=== PATIENT | female | born 1950 | race Caucasian/White ===

== ENCOUNTER 2018-01-26 11:46 | Outpatient (REF) | payer MEDICARE, MEDICAID, SELFPAY ==
[2018-01-26 21:54] LABS: Anion Gap 6.6 mmol/L (3-11); BUN 10 mg/dL (7-18); CO2 31.4 mmol/L (21.0-32.0); CREATININE 0.77 mg/dL (0.55-1.02); Calcium 9.3 mg/dL (8.5-10.1); Chloride 100 mmol/L (98-107); Glucose 82 mg/dL (70-100); Magnesium 2.2 mg/dL (1.8-2.4); Potassium 4.1 mmol/L (3.5-5.1); Sodium 138 mmol/L (136-145)
== END 2018-01-26 12:06 ==
LOC: NCHCN 11:46
PROVIDERS: PCP Family Medicine; Visit Provider Family Medicine
DX: I10 Essential (primary) hypertension (principal); M79.1 Myalgia
CPT/HCPCS: 80048; 83735

== ENCOUNTER 2018-05-03 01:07 | Outpatient (CLI) | payer MEDICARE, MEDICAID, SELFPAY ==
--- NOTE | 2018-05-03 09:29 | DI.RAD_ITS ---
SYMPTOM/DIAGNOSIS: CHRONIC BACK PAIN, M54.89 THORACIC SPINE: AP and lateral views were obtained. There is a mild right convex scoliosis of the thoracic spine. Moderate degenerative changes are seen throughout the thoracic spine. No acute fractures or subluxations are seen. The bones appear normally mineralized. There is a large hiatal hernia present. IMPRESSION: Moderate degenerative changes in the thoracic spine. 2. Large hiatal hernia
== END 2018-05-03 01:27 ==
PROVIDERS: PCP Family Medicine; Visit Provider Family Medicine
DX: M54.6 Pain in thoracic spine (principal); G89.29 Other chronic pain; M47.814 Spondylosis without myelopathy or radiculopathy, thoracic region
CPT/HCPCS: 72072

== ENCOUNTER 2018-10-12 10:52 | Outpatient (REF) | payer MEDICARE, MEDICAID, SELFPAY ==
[2018-10-12 19:56] LABS: BUN 16 mg/dL (7-18); CREATININE 0.87 mg/dL (0.55-1.02)
== END 2018-10-12 11:12 ==
LOC: NCHCN 10:52
PROVIDERS: PCP Family Medicine; Visit Provider Family Medicine
DX: Z01.812 Encounter for preprocedural laboratory examination (principal)
CPT/HCPCS: 84520; 82565

== ENCOUNTER 2018-12-03 11:20 | Outpatient (CLI) | payer MEDICARE, MEDICAID, SELFPAY ==
--- NOTE | 2018-12-18 13:45 | HOLTER_ITS ---
DATE OF DICTATION: December 18, 2018 STUDY INDICATION: Chest discomfort. REQUESTING PROVIDER: Not available. FINDINGS: The patient was monitored for 1 day and 23 hours. Baseline sinus rhythm. Average heart rate 75 bpm, range 52 to 121 bpm. Rare ectopy. 17 atrial runs, longest 5 beats, fastest 179 bpm. No pauses greater than 3 seconds. No high degree heart block. Two patient events. None of these correlated with arrhythmias. FINAL INTERPRETATION: Minor asymptomatic atrial tachyarrhythmias..
== END 2018-12-03 11:40 ==
PROVIDERS: PCP Family Medicine; Visit Provider Family Medicine
DX: R07.89 Other chest pain (principal); I47.2 Ventricular tachycardia; I47.1 Supraventricular tachycardia
CPT/HCPCS: 93225

== ENCOUNTER 2018-12-05 14:07 | Outpatient (CLI) | payer MEDICARE, MEDICAID, SELFPAY ==
--- NOTE | 2018-12-14 07:20 | HOLTER_ITS ---
HOLTER MONITOR DATE OF DICTATION December 13, 2018 INDICATION Chest discomfort. 48 hour Holter Monitor Baseline rhythm is sinus rhythm. Average heart rate is 75 beats per minute. Minimum heart rate is 52 beats per minute and max heart rate is 121 beats per minute. Rare isolated ventricular ectopy. One short burst of nonsustained VT lasting 5 beats. Rare predominantly isolated PACs. No atrial fibrillation. Three short bursts of SVT, the longest 5 beats long. No significant pauses or rafael arrhythmias. One diary event of deep achy pain corresponds to sinus rhythm. Kailey Regalado M.D. GERMAIN/ynes T - 12/14/2018
--- NOTE | 2018-12-17 14:18 | HOLTER_ITS ---
DATE OF DICTATION: December 17, 2018 48-HOUR STUDY Baseline rhythm sinus. Occasional single PAC. SVT x2, longest 5-beat duration, fastest 179 bpm. No atrial fibrillation. Rare single PVC. One couplet. No VT. No bradycardia. SYMPTOMS: Deep ache noted once during sinus rhythm 86 bpm, no ST-T wave changes. Average heart rate 75 bpm, range 52-121 bpm.
--- NOTE | 2018-12-28 15:51 | HOLTER_ITS ---
DATE OF DICTATION: December 28, 2018 48-HOUR HOLTER MONITOR INDICATION: Chest discomfort. Baseline sinus rhythm. Average heart rate 75 bpm, minimum heart rate 52 bpm, maximum heart rate 121 bpm. Rare isolated ventricular ectopy. One short 5-beat burst of non-sustained VT. Rare isolated atrial ectopy. No atrial fibrillation. No significant pauses or bradyarrhythmias. One diary entry of deep, achy pain corresponds to sinus rhythm.
== END 2018-12-05 14:27 ==
PROVIDERS: PCP Family Medicine; Visit Provider Family Medicine
DX: R07.89 Other chest pain (principal); I47.2 Ventricular tachycardia; I47.1 Supraventricular tachycardia
CPT/HCPCS: 93226

== ENCOUNTER 2018-12-13 12:35 | Outpatient (CLI) | payer MEDICARE, MEDICAID, SELFPAY | END 2018-12-13 12:55 | PROVIDERS: PCP Family Medicine; Referring Provider Family Medicine; Visit Provider Internal Medicine Cardiovascular Disease | DX: R07.89 Other chest pain (principal); I47.2 Ventricular tachycardia; I47.1 Supraventricular tachycardia | CPT/HCPCS: 93227 ==

== ENCOUNTER → 2019-01-30 13:02 | Outpatient (BNVA) | payer MEDICARE, MEDICAID, SELFPAY | PROVIDERS: PCP Family Medicine; Visit Provider Psychiatry & Neurology Neurology | DX: M79.602 Pain in left arm (principal); R47.1 Dysarthria and anarthria; R25.1 Tremor, unspecified; I10 Essential (primary) hypertension | CPT/HCPCS: 99205 ==

== ENCOUNTER 2019-05-27 15:55 | Outpatient (CLI) | payer MEDICARE, MEDICAID, SELFPAY ==
--- NOTE | 2019-05-27 15:29 | DI.RAD_ITS ---
EXAM: XR KNEE RT 3V AP,LAT,HOA INDICATION: RT KNEE PAIN,M25.561,INFEROLATERAL SWELLING,PAIN POSTERIORLY, ? BAKERS CYST. COMPARISON: No exams were available for comparison TECHNIQUE: 2D digital imaging was performed. FINDINGS: The joint spaces are well maintained. There is mild spurring at the articular aspect of the patella and quadriceps insertion on the patella. No joint effusion is visible. There is a calcification se en adjacent to the lateral femoral condyle.
== END 2019-05-27 16:15 ==
PROVIDERS: PCP Family Medicine; Visit Provider Nurse Practitioner Family
DX: M25.561 Pain in right knee (principal); M79.89 Other specified soft tissue disorders; M25.761 Osteophyte, right knee
CPT/HCPCS: 73562

== ENCOUNTER → 2019-06-21 10:16 | Outpatient (BNVA) | payer MEDICARE, MEDICAID, SELFPAY | PROVIDERS: PCP Family Medicine; Referring Provider Family Medicine; Visit Provider Student in an Organized Health Care Education/Training Program | DX: M23.41 Loose body in knee, right knee (principal) | CPT/HCPCS: 99203; 99214 ==

== ENCOUNTER 2019-06-28 02:02 | Outpatient (CLI) | payer MEDICARE, MEDICAID, SELFPAY ==
--- NOTE | 2019-06-28 08:52 | DI.MRI_ITS ---
EXAM: MR LOWER JOINT RT WO CLINICAL HISTORY: R knee pain M23.41 LOOSE BODY IN RT KNEE. TECHNIQUE: Multiplanar multisequence MRI was performed. COMPARISON: XR KNEE RT 3V AP,LAT,HOA from 05/27/2019 FINDINGS: MR examination of the knee was performed according to the usual protocol. There is a small knee join t effusion and small Zacarias's cyst is noted. There is mild articular cartilage thinning at the patell ofemoral joint consistent with degenerative change. Otherwise extensor mechanism appears intact. No loose joint body seen. No significant bony signal abnormality is seen. There is thinning of the articular cartilage of the medial tibiofemoral joint. There is mildly increased signal in the Hoffa fat pad, nonspecific. There is abnormal signal in anterior horn of lateral meniscus without evidence of a discrete tear. No medial meniscal tear. No cruciate ligament tear. Collateral ligaments appear intact. IMPRESSION: Mild degenerative articular changes of patellofemoral joint and medial tibiofemoral joint. No international trade analyst al derangement. No loose body is seen.
== END 2019-06-28 02:22 ==
PROVIDERS: PCP Family Medicine; Visit Provider Physician Assistant
DX: M25.561 Pain in right knee (principal); M23.41 Loose body in knee, right knee; M17.11 Unilateral primary osteoarthritis, right knee; M25.461 Effusion, right knee; M71.21 Synovial cyst of popliteal space [Baker], right knee
CPT/HCPCS: 73721

== ENCOUNTER → 2019-07-01 13:51 | Outpatient (BNVA) | payer MEDICARE, MEDICAID, SELFPAY | PROVIDERS: PCP Family Medicine; Referring Provider Family Medicine; Visit Provider Student in an Organized Health Care Education/Training Program | DX: M65.262 Calcific tendinitis, left lower leg (principal); M65.261 Calcific tendinitis, right lower leg | CPT/HCPCS: 20610; 99213; J1040 ==

== ENCOUNTER 2019-12-20 14:32 | Outpatient (REF) | payer MEDICARE, MEDICAID, SELFPAY ==
[2019-12-20 20:01] LABS: BUN 16 mg/dL (7-18); C-Reactive Protein 0.19 mg/dL (0.0-0.3); CREATININE 0.88 mg/dL (0.55-1.02); Calcium 9.5 mg/dL (8.5-10.1); Chloride 99 mmol/L (98-107); Glucose 88 mg/dL (74-106); Potassium 3.8 mmol/L (3.5-5.1); Sodium 138 mmol/L (136-145); TSH (W/Ref FT4) 0.12 uIU/mL (0.36-3.74)
[2019-12-20 20:03] LABS: HCT 40.1 % (36.0-46.0); HGB 12.8 g/dL (11.2-15.7)
[2019-12-20 21:32] LABS: ESR 14 mm/hr (0-30)
[2019-12-20 21:38] LABS: FREE T4 1.14 ng/dL (0.76-1.46)
== END 2019-12-20 14:52 ==
LOC: NCHCN 14:32
PROVIDERS: PCP Family Medicine; Visit Provider Family Medicine
DX: I10 Essential (primary) hypertension (principal); R63.5 Abnormal weight gain; G56.01 Carpal tunnel syndrome, right upper limb; G89.4 Chronic pain syndrome
CPT/HCPCS: 80048; 85652; 84439; 84443; 85014; 85018; 86140

== ENCOUNTER 2020-12-01 14:42 | Outpatient (REF) | payer MEDICARE, MEDICAID, SELFPAY ==
[2020-12-01 19:58] LABS: Anion Gap 8.8 mmol/L (3-11); BUN 18 mg/dL (7-18); CO2 29.2 mmol/L (21.0-32.0); Calcium 9.5 mg/dL (8.5-10.1); Chloride 103 mmol/L (98-107); Estimated GFR 54.97 (mL/min/1.73m2); Glucose 86 mg/dL (74-106); Potassium 3.6 mmol/L (3.5-5.1); Sodium 141 mmol/L (136-145); TSH (W/Ref FT4) 0.19 uIU/mL (0.36-3.74)
[2020-12-01 20:28] LABS: FREE T4 1.06 ng/dL (0.76-1.46)
== END 2020-12-01 14:43 | disposition home or self-care (01) ==
LOC: NCHCN 14:42
PROVIDERS: PCP Family Medicine; Visit Provider Family Medicine
DX: Z00.00 Encounter for general adult medical examination without abnormal findings (principal); E04.1 Nontoxic single thyroid nodule; I10 Essential (primary) hypertension
CPT/HCPCS: 80048; 84439; 84443

== ENCOUNTER 2020-12-24 02:17 | Outpatient (CLI) | payer MEDICARE, MEDICAID, SELFPAY ==
--- NOTE | 2020-12-24 | DI.US_ITS ---
Exam(s) US THYROID EXAM: US THYROID CLINICAL HISTORY: THYROID NODULE,E04.1,[facility],Z00.00. TECHNIQUE: Ultrasound thyroid performed using standard protocol. COMPARISON: Prior ultrasound December 2011 was reviewed FINDINGS: Compared to the 2012 study there is again noted a normal size left thyroid lobe and an enlarged -expa nded right lobe. There are no nodules in the left lobe nor in the isthmus. RIGHT THYROID LOBE: Measures 2.4 cm AP x 3.6 cm wide x 4.9 cm craniocaudal LEFT THYROID LOBE: Measures 1.4 cm AP x 1.4 wide x 3.5 cm craniocaudal ISTHMUS: Normal thickness. There are no nodules in the isthmus. Significant nodules are as follows: In the right lobe there are 2 contiguous somewhat similar appearing partially solid partially cystic nodules, with the larger of these 2 nodules again noted be the more superior of the 2 nodules. RIGHT THYROID LOBE: . Nodule #1. This is the more superior/larger nodule: Size: 3.4 cm x 3.6 cm x 4.2 cm Composition: Mixed igoux-mvchgs-4 point Echogenicity: Hypoechoic-2 points Shape: Not taller than wider-0 point Margin: Smooth- 0 points Echogenic Foci: Contains somewhat psammomatous calcifications-2 points Total Points for this nodule: 5 ACR Ti-Rads Category: TR4-moderately suspicious Given that this nodule measures greater than 1.5 cm ultrasound-guided FNA is recommended. I note catrachito t this nodule has only slightly increased in size from 2012. Nodule #2. This is the lower of the 2 nodules Size: 1.6 cm x 1.8 cm x 2.2 cm Composition: Mixed cystic-solid- 1 point Echogenicity: Hypoechoic- 2 points Shape: Wider than taller- 0 points Margin: Smooth-0 points Echogenic Foci: None-0 points Total points for this nodule: 3 ACR Ti-Rads Category: TR3 As this nodule is less than 2.5 cm it can be followed. It exhibits minimal change from 2012. There are no additional right lobe nodules. No nodules seen in the isthmus nor in the left lobe. LYMPH NODES: There is no significant adenopathy. IMPRESSION: 1. Compared to the images of December 2011 the 2 adjacent mixed solid-cystic nodules occupying most of the right thyroid lobe are again noted. The more superior of the 2 nodules which is the larger nodul e has minimally increased in size by few millimeters and is a TiRads 4 nodule. Given that it measure s greater than 1.5 cm it should undergo ultrasound-guided FNA. Correlation with any history of inter arabella biopsy is recommended. 2. The more inferior-smaller nodule in the right lobe exhibits minimal if any significant change from 2012 and is therefore deemed stable and can be followed. 3. There is no significant lymphadenopathy. DATA REPOSITORY:
== END 2020-12-24 02:37 ==
PROVIDERS: PCP Family Medicine; Visit Provider Family Medicine
DX: Z00.00 Encounter for general adult medical examination without abnormal findings (principal); E04.2 Nontoxic multinodular goiter
CPT/HCPCS: 76536

== ENCOUNTER 2021-03-15 07:45 | Outpatient (CLI) | payer MEDICARE, MEDICAID, SELFPAY ==
--- NOTE | 2021-03-15 13:24 | DI.MAMMO_ITS ---
Exam(s) MAMMO SCREENING EXAM: MAMMO SCREENING CLINICAL HISTORY: SCREENING, [facility],Z00.00. TECHNIQUE: Bilateral full field digital CC and MLO mammographic images were obtained with 3D tomosyn thesis and utilizing computer aided detection (CAD). COMPARISON: Prior mammograms dating back to 2012, the most recent being November 2016. FINDINGS: There is stable appearing nodules in the right breast, unchanged from prior studies. Also stable ana earing nodules in left breast. There are no new spiculated masses nor malignant appearing microcalcification groups. There is no significant architectural distortion nor skin thickening-retraction. IMPRESSION: Stable benign findings. No radiographic evidence of malignancy. BI-RADS Category 2 - Benign Findings Breast Density - Category B - Scattered areas of fibroglandular density Breast density Category C or D implies that the patient has dense breast tissue. Dense breast tissue can make it harder to find cancer on a mammogram. Dense breast tissue is also associated with an incr eased risk of breast cancer. This information about the result of the mammogram report was provided to the patient to raise their awareness. Use this report when you speak with the patient about their risks for breast cancer, which includes their family history. At that time, you may recommend additional screening tests (Ultrasoun d or MRI) as these tests may add significant information. A negative radiographic report should not delay biopsy if a dominant or clinically suspicious mass is present. Up to ten percent of cancers are not identified on mammography. A negative report may reinforce clinical impression. Adenosis and dense breasts may obscure an underlying neoplasm. False positive reports average 6 to 10%. Patient will receive a letter notifying them of these results.
== END 2021-03-15 08:05 ==
PROVIDERS: PCP Family Medicine; Visit Provider Family Medicine
DX: Z12.31 Encounter for screening mammogram for malignant neoplasm of breast (principal)
CPT/HCPCS: 77063; 77067

== ENCOUNTER 2021-06-03 03:05 | Outpatient (CLI) | payer MEDICARE, MEDICAID, SELFPAY ==
--- NOTE | 2021-06-03 13:30 | DI.DEXA_ITS ---
Exam(s) XR DEXA BONE DENSITY W/WO TRENT EXAM: XR DEXA BONE DENSITY W/WO TRENT CLINICAL HISTORY: MENOPAUSAL, Z78.0, [facility], Z00.00,screening osteoporosis TECHNIQUE: [employer] Horizon C densitometer COMPARISON: DEXA 2003 and 2012 FINDINGS: Lateral view of the thoracic and lumbar spine shows no evidence of compression fractures. Bone mineral density measurements of the lumbar spine correspond to a total T-score of -1.6, in the osteopenic range. 7.8 percent decrease compared with 2012. 22.5 percent decrease compared to 2003. Bone mineral density measurements of the left hip correspond to a total T-score of -0.6. The femora l neck T-score is -0.8, in the normal range. this represents 11.3 percent decrease from 2012 and a 17.9 percent decrease from 2003. . The right forearm bone mineral density measurements correspond to a T-score of the distal 3rd of -1. 7, in the osteopenic range. There has been a 14.2 percent decrease compared with 2012. The forearm was not evaluated in 2003.. IMPRESSION: Normal bone mineral density of the left hip. Osteopenia of the lumbar spine and left forearm. There is been significant decrease in bone mineral density when compared with prior exams..
== END 2021-06-03 03:25 ==
PROVIDERS: PCP Family Medicine; Visit Provider Family Medicine
DX: Z78.0 Asymptomatic menopausal state (principal); Z00.00 Encounter for general adult medical examination without abnormal findings; M85.832 Other specified disorders of bone density and structure, left forearm; M85.88 Other specified disorders of bone density and structure, other site
CPT/HCPCS: 77080

== ENCOUNTER 2022-01-11 15:14 | Outpatient (REF) | payer MEDICARE, MEDICAID, SELFPAY ==
[2022-01-11 17:24] LABS: Anion Gap 9.6 mmol/L (3-11); BUN 15 mg/dL (7-18); CO2 28.4 mmol/L (21.0-32.0); CREATININE 0.8 mg/dL (0.55-1.02); Calcium 9.1 mg/dL (8.5-10.1); Chloride 99 mmol/L (98-107); Glucose 95 mg/dL (74-106); Potassium 3.9 mmol/L (3.5-5.1); Sodium 137 mmol/L (136-145); TSH (W/Ref FT4) 0.04 uIU/mL (0.36-3.74)
[2022-01-11 17:50] LABS: FREE T4 1.18 ng/dL (0.76-1.46)
[2022-01-14 18:45] LABS: T3,Free 3.9 pg/mL (2.8-5.3)
== END 2022-01-11 15:15 | disposition home or self-care (01) ==
LOC: NCHCN 15:14
PROVIDERS: PCP Family Medicine; Visit Provider Family Medicine
DX: E04.1 Nontoxic single thyroid nodule (principal); I10 Essential (primary) hypertension; M79.7 Fibromyalgia
CPT/HCPCS: 80048; 84439; 84443; 84481

== ENCOUNTER 2023-04-10 17:44 | Outpatient (REF) | payer MEDICARE, MEDICAID, SELFPAY ==
[2023-04-10 18:56] LABS: ALT 33 U/L (14-59); AST 25 U/L (15-37); Albumin 3.9 g/dL (3.4-5.0); Alkaline Phosphatase 68 U/L (46-116); Anion Gap 9.3 mmol/L (3-11); BUN 17 mg/dL (7-18); Bilirubin, Total 0.3 mg/dL (0.2-1.0); CO2 28.7 mmol/L (21.0-32.0); Calcium 9.6 mg/dL (8.5-10.1); Calculated LDL 106 mg/dL (<100); Chloride 101 mmol/L (98-107); Cholesterol 199 mg/dL (<200); Estimated GFR 60.23 (mL/min/1.73m2); Glucose 96 mg/dL (74-106); HDL Cholesterol 69 mg/dL (40-60); Potassium 3.5 mmol/L (3.5-5.1); Sodium 139 mmol/L (136-145); Total Protein 7.8 g/dL (6.4-8.2); Triglyceride 122 mg/dL (<150)
== END 2023-04-10 17:45 | disposition home or self-care (01) ==
LOC: NCHCN 17:44
PROVIDERS: PCP Family Medicine; Visit Provider Family Medicine
DX: I10 Essential (primary) hypertension (principal)
CPT/HCPCS: 80053; 80061

== ENCOUNTER → 2023-05-05 00:23 | Outpatient (CLI) | payer MEDICARE, MEDICAID, SELFPAY ==
--- NOTE | 2023-05-05 12:45 | DI.MAMMO_ITS ---
Exam(s) MAMMO SCREENING EXAM: MAMMO SCREENING CLINICAL HISTORY: SCREENING, Z12.31, Z00.00 ADULT HEALTH EXAMINATION TECHNIQUE: Mammograms were interpreted according to the usual protocol including computer analysis w [employer] CAD system, tomosynthesis and C-view imaging. COMPARISON: 2014 through 2021 FINDINGS: The breasts are composed of scattered fibroglandular densities, Breast Density category B. No suspicious masses or suspicious microcalcifications are seen. No skin thickening or abnormal axillary lymph nodes are seen. There has been no significant change from prior exams. IMPRESSION: BI-RADS Category 1, Negative mammogram Yearly screening mammography is recommended. Breast Density - Category B, scattered fibroglandular densities. A negative radiographic report should not delay biopsy if a dominant or clinically suspicious mass is present. Up to ten percent of cancers are not identified on mammography. A negative report may reinforce clinical impression. Adenosis and dense breasts may obscure an underlying neoplasm. False positive reports average 6 to 10%. Patient will receive a letter notifying them of these results.
== END ==
PROVIDERS: PCP Family Medicine; Visit Provider Family Medicine
DX: Z12.31 Encounter for screening mammogram for malignant neoplasm of breast (principal)
CPT/HCPCS: 77063; 77067

== ENCOUNTER 2024-08-16 00:45 | Outpatient (CLI) | payer MEDICARE, MEDICAID, SELFPAY ==
--- NOTE | 2024-08-16 08:32 | DI.MAMMO_ITS ---
Exam(s) MAMMO SCREENING EXAM: MAMMO SCREENING CLINICAL HISTORY: Screening, Z12.31. TECHNIQUE: Bilateral full field digital CC and MLO mammographic images were obtained with 3D tomosyn thesis and utilizing computer aided detection (CAD). COMPARISON: Prior mammograms were reviewed. FINDINGS: There has been no significant change in the appearance and distribution of the fibroglandular tissue. Nodular densities in both breasts remain stable from prior mammograms. There are no new spiculated masses nor new malignant appearing microcalcification groups. There is no significant architectural distortion nor skin thickening-retraction. IMPRESSION: No radiographic evidence of malignancy. Stable benign-appearing findings. BI-RADS Category 2 - Benign Findings Breast Density - Category B - Scattered areas of fibroglandular density Breast density Category C or D implies that the patient has dense breast tissue. Dense breast tissue can make it harder to find cancer on a mammogram. Dense breast tissue is also associated with an incr eased risk of breast cancer. This information about the result of the mammogram report was provided to the patient to raise their awareness. Use this report when you speak with the patient about their risks for breast cancer, which includes their family history. At that time, you may recommend additional screening tests (Ultrasoun d or MRI) as these tests may add significant information. A negative radiographic report should not delay biopsy if a dominant or clinically suspicious mass is present. Up to ten percent of cancers are not identified on mammography. A negative report may reinforce clinical impression. Adenosis and dense breasts may obscure an underlying neoplasm. False positive reports average 6 to 10%. Patient will receive a letter notifying them of these results.
== END 2024-08-16 01:05 ==
LOC: DI 00:45
PROVIDERS: PCP Family Medicine; Visit Provider Family Medicine
DX: Z12.31 Encounter for screening mammogram for malignant neoplasm of breast (principal); R92.323 Mammographic fibroglandular density, bilateral breasts; D24.1 Benign neoplasm of right breast; D24.2 Benign neoplasm of left breast
CPT/HCPCS: 77063; 77067

== ENCOUNTER 2025-04-25 17:42 | Outpatient (REF) | payer MEDICARE, MEDICAID, SELFPAY ==
[2025-04-25 18:12] LABS: Hemoglobin A1C 5.2 % (<5.7)
[2025-04-25 18:21] LABS: Anion Gap 10.5 mmol/L (3-11); BUN 19 mg/dL (9-23); CO2 28.5 mmol/L (20.0-31.0); Calcium 9.8 mg/dL (8.3-10.6); Chloride 106 mmol/L (98-107); Cholesterol 183 mg/dL (<200); Glucose 90 mg/dL (74-106); HDL Cholesterol 72 mg/dL (>40); Potassium 3.8 mmol/L (3.5-5.1); Sodium 145 mmol/L (136-145)
[2025-04-25 18:22] LABS: Microalb ug/mg Crea 27.2 ug/mg Cr
== END 2025-04-25 17:43 | disposition home or self-care (01) ==
LOC: NCHCN 17:42
PROVIDERS: PCP Family Medicine; Visit Provider Family Medicine
DX: Z13.1 Encounter for screening for diabetes mellitus (principal); E78.5 Hyperlipidemia, unspecified; I10 Essential (primary) hypertension
CPT/HCPCS: 80048; 80061; 82043; 82570; 83036